=== PATIENT | male | born 1985 ===

== ENCOUNTER 2017-01-26 10:54 | Emergency (ER) | payer OTHER ==
--- NOTE | 2017-01-26 11:32 | UC ---
[facility] General HPI - HPI Summary HPI Summary: complaint of complaint of rednes and iritation on the end of his penis that started approx 2 weeks ago has been treated with yeast infection sometimes it is itching denies dysuria, scrotal pain denies penile discharge and lesions - History of Current Complaint Chief Complaint: UCGU Stated Complaint: PENILE INFECTION Time Seen by Provider: 01/26/17 11:24 Hx Obtained From: Patient - Allergy/Home Medications Allergies/Adverse Reactions: Allergies Allergy/AdvReac Type Severity Reaction Status Date / Time No Known Allergies Allergy Verified 01/26/17 11:03 PMH/Surg Hx/FS Hx/Imm Hx Previously Healthy: Yes - Surgical History Surgical History: None - Family History Known Family History: Negative: Cardiac Disease, Hypertension, Diabetes - Social History Occupation: Employed Full-time Lives: With Family Alcohol Use: None Substance Use Type: None Smoking Status (MU): Never Smoked Tobacco Review of Systems Constitutional: Negative Skin: Rash Eyes: Negative ENT: Negative Respiratory: Negative Cardiovascular: Negative Gastrointestinal: Negative Genitourinary: Negative Motor: Negative Neurovascular: Negative Musculoskeletal: Negative Neurological: Negative Psychological: Negative All Other Systems Reviewed And Are Negative: Yes Physical Exam Triage Information Reviewed: Yes Appearance: No Pain Distress, Well-Nourished Vital Signs: Initial Vital Signs Temp 97.6 F 01/26/17 11:00 Pulse 73 01/26/17 11:00 Resp 16 01/26/17 11:00 BP 113/75 01/26/17 11:00 Pulse Ox 100 01/26/17 11:00 Vital Signs Reviewed: Yes Eyes: Positive: Conjunctiva Clear ENT: Positive: Pharynx normal, TMs normal Neck: Positive: No Lymphadenopathy Respiratory: Positive: Lungs clear, Normal breath sounds, No respiratory distress, No accessory muscle use Cardiovascular: Positive: RRR, No Murmur, Pulses Normal Abdomen Description: Positive: Nontender, Soft Bowel Sounds: Positive: Present Musculoskeletal: Positive: No Edema Neurological: Positive: Alert Psychological Exam: Normal Skin: Positive: Other - refuses complete exam- pt exposed his genetals- tip of penis with erythematous rash, no discharge Course/Dx - Differential Dx - Multi-Symptom Provider Diagnoses: balanitis Discharge - Discharge Plan Condition: Stable Disposition: HOME Prescriptions: Clotrimazole 1% CREAM* [Clotrimazole 1%*] 1 applic TOPICAL BID #1 tube Fluconazole 100 MG TAB* [Diflucan 100 MG TAB*] 100 mg PO DAILY #1 tab Patient Education Materials: Wendi (ED) Referrals: [facility] [Outside] Additional Instructions: Please start diflucan and clotrimazole as directed Increase fluids and rest Take acetaminophen or ibuprofen for fever or pain Please review your discharge instructions. If your symptoms do not improve please call your primary care provider or return to urgent care.
== END 2017-01-26 11:57 | disposition home or self-care (01) ==
LOC: UCEAST 10:54
DX: N48.1 Balanitis (principal)
CPT/HCPCS: 99201; G0463